=== PATIENT | female | born 1960 | race Caucasian/White ===

== ENCOUNTER 2020-09-17 05:40 | Inpatient (IN) | payer OTHER, SELFPAY ==
[2020-09-17] VITALS (7 sets, daily range): BP systolic 119–142; BP diastolic 44–76
[~2020-09-17] VITALS: Ht 165.1 cm; Wt 104.3 kg
--- NOTE | 2020-09-17 05:40 | NUR ---
0520- PT [facility]. TAKEN TO BED 9
[2020-09-17] MEDS ORDERED: NACL 0.9% 1,000 ML IV ONE ×2 (05:50)
--- NOTE | 2020-09-17 06:08 | NUR ---
X-Ray at bedside.
[2020-09-17] MEDS ORDERED: cefTRIAXone 1,000 MG VIAL ONE (06:09)
[2020-09-17] MEDS ORDERED: LANS15EC28 GT (06:19)
[2020-09-17] MEDS ORDERED: METO25TA GT (06:19)
[2020-09-17] MEDS ORDERED: QUET25TA GT (06:19)
[2020-09-17] MEDS ORDERED: SYN.1 GT (06:19)
[2020-09-17] MEDS ORDERED: [UNRECOGNIZED DRUG - CODE] SQ (06:19)
[2020-09-17] MEDS ORDERED: LACT1CAP59 GT (06:19)
[2020-09-17] MEDS ORDERED: DOCU-299 GT (06:19)
--- NOTE | 2020-09-17 06:39 | NUR ---
Dr. Herr examining patient.
[2020-09-17] MEDS ORDERED: ACETAMINOPHEN 650 MG/20.3 ML UDC GT ONE (06:45)
[2020-09-17] MEDS ORDERED: ACETAMINOPHEN EXTRA STRENGTH 500 MG TAB PEG ONE (06:50)
[2020-09-17 06:52] LABS: BASOPHILS # (AUTO) 0.1 K/uL (0.00-0.22); BASOPHILS % (AUTO) 0.5 % (0.0-2.0); EOSINOPHILS # (AUTO) 0.1 K/uL (0-0.4); EOSINOPHILS % (AUTO) 0.8 % (0.0-4.0); HEMATOCRIT 33.7 % (36-48); HEMOGLOBIN 11.1 g/dL (12.0-16.0); LYMPHOCYTES # (AUTO) 2.7 K/uL (2.5-16.5); LYMPHOCYTES % (AUTO) 15.1 % (20.5-51.1); MEAN CORPUSCULAR HEMOGLOBIN 31 pg (27-31); MEAN CORPUSCULAR HGB CONC 33 g/dL (33-37); MEAN CORPUSCULAR VOLUME 95.6 fL (80-94); MONOCYTES # (AUTO) 0.8 K/uL (0.8-1.0); MONOCYTES % (AUTO) 4.3 % (1.7-9.3); NEUTROPHILS # (AUTO) 14.1 K/uL (1.8-7.7); NEUTROPHILS % (AUTO) 79.3 % (42.2-75.2); PLATELET COUNT (AUTO) 479 K/uL (140-450); RED BLOOD CELL COUNT(AUTO) 3.53 MIL/uL (4.20-5.40); RED CELL DISTRIBUTION WIDTH 15.1 % (11.6-13.7); WHITE BLOOD COUNT (AUTO) 17.8 K/uL (4.8-10.8)
--- NOTE | 2020-09-17 07:10 | NUR ---
RECEIVED REPORT FROM ROBY SANCHEZ, ASSUMED CARE AT THIS TIME.
[2020-09-17 07:15] LABS: ALBUMIN 2.5 g/dL (3.4-5.0); ANION GAP 6.5 (8-16); CARBON DIOXIDE 37.8 mmol/L (21-32); CREATININE 0.6 mg/dL (0.6-1.3); POTASSIUM 5.3 mmol/L (3.5-5.1); TOTAL BILIRUBIN 0.1 mg/dL (0.0-1.0)
[2020-09-17] MEDS ORDERED: SODIUM ZIRCONIUM CYCLOSILICATE 10 GM POWD.PACK GT ONE (07:30)
[2020-09-17 07:47] LABS: BILIRUBIN,URINE NEGATIVE (NEGATIVE); BLOOD, URINE 2+ (NEGATIVE); COLOR,URINE YELLOW (YELLOW); NITRITE, URINE NEGATIVE (NEGATIVE); PH,URINE 8.5 (5.0-9.0); UGLUCOSE NEGATIVE (NEGATIVE)
[2020-09-17] MEDS ORDERED: ACETAMINOPHEN 650 MG SUPP RC ONE (08:05)
[2020-09-17 08:25] LABS: LEUKOCYTE ESTERASE ,URINE TRACE (NEGATIVE)
[2020-09-17 08:26] LABS: APPEARANCE,URINE SLIGHTLY HAZY (CLEAR)
--- NOTE | 2020-09-17 08:47 | NUR ---
NOVEL COVID SWAB COLLECTED AND WALKED TO LAB.
--- NOTE | 2020-09-17 09:00 | NUR ---
Fermin chrisitne in ED - 09/17/20 at 1919 by [email or web address] Attempted to use g-tube for medications, unable to pass meds through, Dr. Herr made aware.
--- NOTE | 2020-09-17 09:00 | NUR ---
Attempted to use g-tube for medications, unable to pass meds through, Dr. Herr made aware.
[2020-09-17] MEDS ORDERED: MORPHINE SULFATE 4 MG/ML SYR IVP PRN (09:40)
[2020-09-17] MEDS ORDERED: HYDROcodone/APAP 5/325 MG 1 TAB TAB PO PRN (09:40)
[2020-09-17] MEDS ORDERED: KCL 20 MEQ/WATER INJ PREMIX 200 ML IV PRN (09:40)
[2020-09-17] MEDS ORDERED: ACETAMINOPHEN 325 MG TAB PO PRN (09:40)
[2020-09-17] MEDS ORDERED: MAG SULF 2000 MG/WATER PREMIX 50 ML IV PRN (09:40)
[2020-09-17] MEDS ORDERED: MAGNESIUM OXIDE 400 MG TAB PO PRN (09:40)
[2020-09-17] MEDS ORDERED: ONDANSETRON 4 MG/2 ML VIAL IVP PRN (09:40)
[2020-09-17] MEDS ORDERED: POTASSIUM CHLORIDE 10 MEQ TABER PO PRN (09:40)
--- NOTE | 2020-09-17 10:00 | NUR ---
Repositioned patient in a position of comfort with pillows. Patient on bedside patient monitor.
[2020-09-17] MEDS: NACL 0.9% 1,000 ML IV SCH ×2 (11:22→22:10)
--- NOTE | 2020-09-17 12:00 | NUR ---
Patient repositioned with pillows on her left side. On bedside blade changer.
[2020-09-17] MEDS ORDERED: PIPERACILLIN/TAZOBACTAM 3.375 GM VIAL IV ONE ×3 (12:11→23:55)
[2020-09-17] MEDS: PIPERACILLIN/TAZOBACTAM 3.375 GM in DEXTROSE 5% 50 ML IV SCH ×2 (12:22→18:42)
--- NOTE | 2020-09-17 14:00 | NUR ---
Patient repositioned in a position of comfort, patient on bedside alarm security or surveillance monitor. Sister at bedside.
--- NOTE | 2020-09-17 15:32 | NUR ---
Dr. Bernabe is at bedside speaking with family.
--- NOTE | 2020-09-17 16:00 | NUR ---
Patient repositioned in a position of comfort, patient on bedside property assessment monitor. Sister at bedside.
--- NOTE | 2020-09-17 18:00 | NUR ---
Patient repositioned in a position of comfort, patient on bedside monitor car operator. Son at bedside
--- NOTE | 2020-09-17 18:35 | NUR ---
When patient asked if in pain, able to nod yes. Will give medication as ordered PRN.
--- NOTE | 2020-09-17 18:35 | NUR ---
When patient asked if in pain, able to nod yes. Will give medication as ordered PRN.
--- NOTE | 2020-09-17 19:20 | NUR ---
PT IS AWAKE AND ALERT, NODS HEAD TO ANSWER QUESTIONS. SON IS AT BEDSIDE. PT DENIES PAIN AND DISCOMFORT. PEG TUBE PATENT. AUSCULTATION OF AIR INSERTED HEARD. PROVIDED WITH WATER VIA GTUBE PER REQUEST. ALL NEEDS ARE MET AT THIS TIME. BED LOCKED IN LOWEST POSITION, SIDE RAILS X2.
--- NOTE | 2020-09-17 19:26 | NUR ---
Pt report given to Saundra. Transfer of care at this time.
--- NOTE | 2020-09-17 19:27 | NUR ---
RECEIVED REPORT FROM LAURA FELIX. TRANSFER OF CARE AT THIS TIME.
--- NOTE | 2020-09-17 20:36 | NUR ---
PT IS SLEEPING. EQUAL RISE AND FALL OF CHEST WALL. MO S/SX OF RESP DISTRESS. PT OPENS EYES TO SOUNDS AND TOUCH. ALL NEEDS MET AT THIS TIME. BED LOCKED IN LOWEST POSITION, SIDE RAILS X2. SON IS AT BEDSIDE.
--- NOTE | 2020-09-17 21:40 | NUR ---
CALLED AND GAVE REPORT TO LAURA AGUIAR 1925.
--- NOTE | 2020-09-17 22:40 | NUR ---
Patient will be admitted to care of . Admited to tele. Will go to room 124b. Belongings list completed. Report to giuliana licea.
--- NOTE | 2020-09-17 22:45 | NUR ---
ADMITTED A FEMALE PATIENT, NON VERBAL FROM ER TRANSPORTED VIA WONG GROSS TO VENT, HOLMAN CATHETER IN PLACE DRAINING YELLOW, CLOUDY URINE. ALL SAFETY PRECAUTIONS IN PLACE. MRSA SCREENING DONE. KEPT CLEAN, DRY AND COMFORTABLE. CALLED AND SPOKE TO HER SON ANNIKA ASKED SOME INFORMATION. ON TELE MONITORING. Addendum: 09/18/20 at 0107 by Oneida Bonilla RN RN CC: ELEVATED HEART RATE DX: SEPSIS , UTI, ANEMIA. V/S : 135/77, 19, 126, 97.9, 97 5, 97%.
[2020-09-18] MEDS: PIPERACILLIN/TAZOBACTAM 3.375 GM in DEXTROSE 5% 50 ML IV SCH ×3 (00:09→11:09)
[2020-09-18] MEDS: NACL 0.9% 1,000 ML IV SCH ×3 (00:12→23:10)
[2020-09-18 04:00] VITALS: BP 118/61
[2020-09-18] MEDS ORDERED: PIPERACILLIN/TAZOBACTAM 3.375 GM VIAL IV ONE (04:58)
[2020-09-18 05:41] LABS: BASOPHILS % (AUTO) 0.5 % (0.0-2.0); EOSINOPHILS # (AUTO) 0.4 K/uL (0-0.4); EOSINOPHILS % (AUTO) 4.3 % (0.0-4.0); HEMATOCRIT 29.4 % (36-48); HEMOGLOBIN 9.9 g/dL (12.0-16.0); LYMPHOCYTES % (AUTO) 20.3 % (20.5-51.1); MEAN CORPUSCULAR HEMOGLOBIN 32 pg (27-31); MEAN CORPUSCULAR HGB CONC 34 g/dL (33-37); MEAN CORPUSCULAR VOLUME 94.4 fL (80-94); MONOCYTES # (AUTO) 0.6 K/uL (0.8-1.0); MONOCYTES % (AUTO) 6.6 % (1.7-9.3); NEUTROPHILS # (AUTO) 6.7 K/uL (1.8-7.7); NEUTROPHILS % (AUTO) 68.3 % (42.2-75.2); PLATELET COUNT (AUTO) 347 K/uL (140-450); RED BLOOD CELL COUNT(AUTO) 3.12 MIL/uL (4.20-5.40); WHITE BLOOD COUNT (AUTO) 9.8 K/uL (4.8-10.8)
[2020-09-18 06:06] LABS: PROTHROMBIN TIME 9.9 secs (10.8-13.4)
[2020-09-18 06:36] LABS: ALBUMIN 2.3 g/dL (3.4-5.0); ANION GAP 8.1 (8-16); CARBON DIOXIDE 31.3 mmol/L (21-32); CREATININE 0.5 mg/dL (0.6-1.3); POTASSIUM 4.4 mmol/L (3.5-5.1); TOTAL BILIRUBIN 0.3 mg/dL (0.0-1.0)
--- NOTE | 2020-09-18 07:20 | NUR ---
RECEIVED BEDSIDE REPORT FROM SLITTER CREASER SLOTTER OPERATOR NURSE FOR CONTINUITY OF CARE. PT IS ASLEEP WITH CHEST RISE AND FALL SYMMETRICAL. BREATHING IS UNLABORED ON TRACH TO VENT. O2 SAT IS 98%. VENT SETTINGS FIO2 28%, PEEP 5, VT 350, RT 14. ON TELE MONITOR. G TUBE IN PLACE WITH NO FEEDING RUNNING FOR NPO STATUS. HOLMAN CATH IN PLACE. SKIN IS WARM, DRY, AND INTACT. IV IS IN THE LEFT AC 20 GAUGE RUNNING NS AT 80 ML PER HOUR PER ORDER. PT IS STABLE. PLAN OF CARE DISCUSSED.
--- NOTE | 2020-09-18 07:28 | NUR ---
ENDORSED TO AM RN FOR CONTINUITY OF CARE. PATIENT IS IN STABLE CONDITION.
[2020-09-18 08:00] VITALS: BP 108/75
--- NOTE | 2020-09-18 09:30 | NUR ---
ROUNDED ON PT. SHE IS ASLEEP. ON TRACH TO VENT WITH BREATHING UNLABORED. O2 SAT IS 98%. IV IS PATENT AND INFUSING ORDERED. G TUBE IS IN PLACE. HOLMAN CATH IS IN PLACE AND DRAINING YELLOW URINE. PT WAS REPOSITIONED ORDERED. PT IS STABLE.
--- NOTE | 2020-09-18 11:30 | NUR ---
PT IS ASLEEP. CHEST RISE AND FALL IS SYMMETRICAL. NO RESPIRATORY DISTRESS NOTED. FAMILY MEMBER AT BEDSIDE. PT IS ST ON TELE MONITOR. PT IS STABLE.
[2020-09-18 12:00] VITALS: BP 137/76
--- NOTE | 2020-09-18 12:10 | NUR ---
PATIENT HAS BEEN SCREENED AND CATEGORIZED HIGH NUTRITION RISK. PATIENT WILL BE SEEN WITHIN 1-2 DAYS OF ADMISSION. 09/18/[address]
[2020-09-18] MEDS ORDERED: LACTATED RINGERS 500 ML IV SCH (12:20)
[2020-09-18] MEDS: MEROPENEM 1,000 MG in NACL 0.9% 100 ML IV SCH ×2 (13:00→20:56)
--- NOTE | 2020-09-18 13:30 | NUR ---
PT WAS CHANGED AND REPOSITIONED. PT WAS SUCTIONED THROUGH TRACH. CREAMY, WHITE SECRETIONS WERE EXPELLED. PT TOLERATED THIS FAIRLY, O2 SAT IS 98% ON TRACH TO VENT. BREATHING UNLABORED. PT STABLE.
--- NOTE | 2020-09-18 15:00 | NUR ---
DC PLANNING 60 YRS OLD MALE PATIENT WAS ADMITTED FROM [facility] WITH A DX OF SEPSIS. PATIENT HAS A HISTORY OF CHRONIC RESP FAILURE, TRACH TO VENT, DM AND HTN. CXR SHOWED MILD PULMONARY VASCULAR CONGESTION. RAPID COVID TEST NEGATIVE. PCR IS PENDING. INFLUENZA A&B NEGATIVE. ADMINISTERED IVF, IV ABX MEROPENEM AND CONTINUED HOME MEDS. CONSULTED WITH PULMO. DC PLAN TO GO BACK TO [facility] WHEN STABLE CM TO FOLLOW Addendum: 09/22/20 at 1607 by Sonja Evangelista RN DC PLANNING; SPOKE WITH PT'S SON ANNIKA, REQUESTING PT CAN BE DECANNULATED AND DC HOME I EXPLAINED PT STILL NEEDS THE TRACH AND ADVISED TO STAY AT [facility] UNTIL SHE IS STABLE TO BE ON T-BAR. HE AGREED AND WILL FOLLOW UP WITH HER PRIMARY DR AT THE FACILITY AND AGREED PT TO GO BACK TO [facility]. PT CAN GO TO ROOM 2C UNDER DR LINK. # TO GIVE REPORT [phone]. ARRANGED TRANSPORT WITH [facility] UPTIME 7 PM. NOTIFIED ANAM SANCHEZ. CM TO FOLLOW Addendum: 09/23/20 at 1145 by Sonja Evangelista RN DC PLANNING: CALLED PT'S SON LEFT A MESSAGE. PER DR LINK TO SEND THE REQUEST TO [facility] AND [facility]. FAXED ALL PAPERWORK TO BOTH FACILITIES. CM TO FOLLOW Addendum: 09/23/20 at 1417 by Sonja Evaneglista RN DC PLANNING: SPOKE WITH PT'S SON ANNIKA DISCUSSED THE ISSUE AND CONCERN AT [facility] AND DOESN'T WANT HIS MOM TO BE RETURNED [facility]. PROVIDE [facility], [facility]'S ADDRESS. SPOKE WITH PREET AT [facility] REQUESTING RAPID COVID TEST. NOTIFIED MD AND ANAM TO PERFORM COVID TEST. CM TO FOLLOW Addendum: 09/23/20 at 1540 by Sonja Evangelista RN DC PLANNING: MET PT'S SON AT THE [facility] STATED VISITED [facility] AND REQUESTING HIS MOM TO BE TRANSFERRED TO [facility]. SPOKE WITH PARMINDER AT [facility] PROVIDE THE AUTH [id number] AND FOR TRANSPORT [id number] ARRANGE TRANSPORT WITH [facility] TIME 7PM. AWAITING FOR ROOM NUMBER. Addendum: 09/23/20 at 1654 by Sonja Evangelista RN DC PLANNINND COVID TEST NEGATIVE. PT IS ACCEPTED AT [facility] CAN GO TO ROOM 301-1 # TO GIVE REPORT [phone]. ARRANGED TRANSPORT WITH [facility] 7PM NOTIFIED ANAM SANCHEZ .
--- NOTE | 2020-09-18 15:30 | NUR ---
PT IS AWAKE WITH EYES OPEN. PT RESPONDS TO NAME. BREATHING IS UNLABORED ON TRACH TO VENT. G TUBE IS IN PLACE. NO FEEDING RUNNING FOR NPO STATUS. HOLMAN CATH IN PLACE AND DRAINING URINE. PT IS STABLE.
[2020-09-18 16:00] VITALS: BP 127/60
--- NOTE | 2020-09-18 16:24 | NUR ---
RECEIVED TORB FROM DR. HOOD TO START TUBE FEEDING WITH VITAL AF 1.2 @ 50 ML/HR AND FLUSH OF 90 ML Q8H.
--- NOTE | 2020-09-18 17:29 | NUR ---
09/18/20 RD INITIAL ASSESSMENT COMPLETED PLEASE REFER TO NUTRITION ASSESSMENT UNDER CARE ACTIVITY FOR ESTIMATED NUTRITIONAL NEEDS. 1. RECOMMEND VITAL AF 1.2 @ 50 ML/HR, START AT 25 ML/HR ADVANCE TO 50 ML/HR AFTER 2 HR -THIS WILL PROVIDE 1200 ML OF VOLUME, 1440 KCAL AND 90 GM OF PROTEIN. THIS MEETS 100% OF ESTIMATED KCAL AND PROTEIN NEEDS. 2. RECOMMEND FREE WATER FLUSH OF 90 ML Q8H OR PER MD 3. RD TO FOLLOW-UP 2-3 DAYS, HIGH RISK CORNELIO ESCALANTE RD
--- NOTE | 2020-09-18 17:30 | NUR ---
G TUBE FEEDING WAS STARTED. NO RESIDUAL IN G TUBE. PT IS ASLEEP. NO DISTRESS AT THIS TIME ON TRACH TO VENT. PT STABLE.
--- NOTE | 2020-09-18 19:15 | NUR ---
RECEIVED REPORT FROM AM NURSE. PATIENT IS IN SEMI FOWLERS POSITION EYES CLOSED. TRACH TO VENT. NO S/S OF SOB NOTED. RESPIRATION EVEN UNLABORED. IVF OF NS INFUSING AT 80 ML, HOLMAN CATHETER INTACT DRAINING WELL. WILL CONTINUE TO MONITOR.
--- NOTE | 2020-09-18 19:20 | NUR ---
PT SEEN AND ASSESSED. FOUND PT TRACH WITH PORTEX SIZE 8 ON VENT. VENT SETTINGS AC/VC 14, 350, +5, 24% WITH SPO2 OF 97%. AUSCULTATION REVEALS BILATERAL COARSE BREATH SOUNDS. SUCTION SMALL AMOUNT OF YELLOW WHITE THICK SECRETIONS. VENT PLUGGED IN RED OUTLET. ALARMS SET AND AUDIBLE. PT TOLERATING CURRENT TX WELL. WILL CONTINUE TO MONITOR PT.
--- NOTE | 2020-09-18 19:20 | NUR ---
ENDORSED PT TO SOURCING SPECIALIST NURSE FOR CONTINUITY OF CARE. PT IS STABLE. O2 SAT IS 99% ON TRACH TO VENT. PLAN OF CARE DISCUSSED.
[2020-09-18 20:00] VITALS: BP 146/66
[2020-09-19] VITALS (7 sets, daily range): BP systolic 124–160; BP diastolic 58–80
--- NOTE | 2020-09-19 01:00 | NUR ---
SUCTIONED SECRETIONS, KEPT CLEAN AND DRY.
--- NOTE | 2020-09-19 04:27 | NUR ---
ORAL CARE RENDERED, REPOSITIONED
[2020-09-19] MEDS: MEROPENEM 1,000 MG in NACL 0.9% 100 ML IV SCH ×3 (05:36→21:25)
[2020-09-19 06:01] LABS: BASOPHILS # (AUTO) 0.1 K/uL (0.00-0.22); BASOPHILS % (AUTO) 0.9 % (0.0-2.0); EOSINOPHILS # (AUTO) 0.3 K/uL (0-0.4); EOSINOPHILS % (AUTO) 3.1 % (0.0-4.0); HEMATOCRIT 30.7 % (36-48); HEMOGLOBIN 10.3 g/dL (12.0-16.0); LYMPHOCYTES # (AUTO) 1.5 K/uL (2.5-16.5); LYMPHOCYTES % (AUTO) 14.8 % (20.5-51.1); MEAN CORPUSCULAR HEMOGLOBIN 32 pg (27-31); MEAN CORPUSCULAR HGB CONC 34 g/dL (33-37); MEAN CORPUSCULAR VOLUME 94.3 fL (80-94); MONOCYTES # (AUTO) 0.6 K/uL (0.8-1.0); MONOCYTES % (AUTO) 5.4 % (1.7-9.3); NEUTROPHILS # (AUTO) 7.7 K/uL (1.8-7.7); NEUTROPHILS % (AUTO) 75.8 % (42.2-75.2); PLATELET COUNT (AUTO) 390 K/uL (140-450); RED BLOOD CELL COUNT(AUTO) 3.26 MIL/uL (4.20-5.40); RED CELL DISTRIBUTION WIDTH 14.6 % (11.6-13.7); WHITE BLOOD COUNT (AUTO) 10.2 K/uL (4.8-10.8)
[2020-09-19 06:15] LABS: PROTHROMBIN TIME 10.3 secs (10.8-13.4)
[2020-09-19 06:21] LABS: ALBUMIN 2.3 g/dL (3.4-5.0); ANION GAP 9.5 (8-16); CARBON DIOXIDE 29.1 mmol/L (21-32); CREATININE 0.4 mg/dL (0.6-1.3); MAGNESIUM 1.8 mg/dL (1.8-2.4); POTASSIUM 3.6 mmol/L (3.5-5.1); TOTAL BILIRUBIN 0.3 mg/dL (0.0-1.0)
--- NOTE | 2020-09-19 07:30 | NUR ---
RECEIVED BEDSIDE REPORT FROM CUSHION WORKER NURSE FOR CONTINUITY OF CARE. PT IS ASLEEP WITH CHEST RISE AND FALL BREATHING IS UNLABORED ON TRACH TO VENT. O2 SAT IS 98%. VENT SETTINGS FIO2 24%, PEEP 5, VT 350, RT 14. ON TELE MONITOR. G TUBE IN PLACE WITH VITAL AF 50 ML/HR, H20 FLUSH 90 ML/HR. HOLMAN CATH IN PLACE DRAINING URINE YELLOW BY GRAVITY. SKIN IS WARM, DRY, AND INTACT. IV IS IN THE LAC 20 GAUGE RUNNING NS AT 80 ML PER HOUR PER ORDER. PLAN OF CARE DISCUSSED. SAFETY PRECAUTIONS IN PLACE. CALL LIGHT WITHIN REACH. WILL CONTINUE TO MONITOR.
--- NOTE | 2020-09-19 07:30 | NUR ---
ENDORSED TO AM NURSE FOR CONTINUITY OF CARE. PATIENT IS STABLE.
--- NOTE | 2020-09-19 09:41 | NUR ---
NO SCHEDULED MEDICATIONS GIVEN. PT IS STABLE. NO S/S OF RESPIRATORY DISTRESS NOTED. WILL CONTINUE TO MONITOR.
[2020-09-19] MEDS: NACL 0.9% 1,000 ML IV SCH (10:50)
--- NOTE | 2020-09-19 12:00 | NUR ---
CHECKED ON PATIENT. PATIENT IS STABLE NO DISTRESS NOTED. WILL CONTINUE TO MONITOR.
--- NOTE | 2020-09-19 13:47 | NUR ---
ALL SCHEDULED MEDS GIVEN. PT IS STABLE. NO S/S OF RESPIRATORY DISTRESS NOTED. WILL CONTINUE TO MONITOR.
--- NOTE | 2020-09-19 15:38 | NUR ---
OBTAINED URINE CULTURE FROM PATIENT'S HOLMAN CATH PORT. SENT THE URINE CULTURE TO LAB
[2020-09-19] MEDS ORDERED: POTASSIUM CHLORIDE 20% 40 MEQ/15 ML UDC GT PRN (16:20)
--- NOTE | 2020-09-19 17:10 | NUR ---
ASSISTED ELECTRIC RAZOR ASSEMBLER WITH CLEANING AND CHANGING PATIENT'S SHEET. KEPT DRY AND CLEAN. PT IS STABLE. NO DISTRESS NOTED. WILL CONTINUE TO MONITOR.
--- NOTE | 2020-09-19 17:55 | NUR ---
REPLACED OLD TUBE FEEDING WITH NEW TUBE FEEDING. NO RESIDUAL WAS NOTED. WILL CONTINUE TO MONITOR.
--- NOTE | 2020-09-19 19:30 | NUR ---
ENDORSED TO STOCK CLERK NURSE FOR CONTINUITY OF CARE. PT IS STABLE.
--- NOTE | 2020-09-19 20:00 | NUR ---
RECEIVED PATIENT AWAKE IN BED. PATIENT TRACH TO VENT WITH SETTINGS AC VC. 24% FIO2, VT 350, PEEP OF 5 RATE OF 14. O2 SAT 97% AT THIS TIME. PATIENT NON VERBAL BUT ABLE TO NOD TO SHOW UNDERSTANDING. PT WITH RIGHT SIDED HEMIPARESIS. G-TUBE IN PLACE WITH TF RUNNING. HOLMAN CATH IN PLACE DRAINING CLEAR YELLOW URINE. PT'S SON AT BEDSIDE. POC OF CARE DISCUSSED. PT'S SON VERBALIZED UNDERSTANDING.
[2020-09-19] MEDS: METOPROLOL 50 MG TAB GT SCH (21:25)
[2020-09-19] MEDS: QUEtiapine FUMARATE 25 MG TAB GT SCH (21:25)
[2020-09-19] MEDS: DOCUSATE 100 MG/10 ML UDC GT SCH (21:25)
--- NOTE | 2020-09-19 22:00 | NUR ---
PT TURNED AND REPOSITIONED. ORAL CARE PROVIDED
[2020-09-20] VITALS: BP 126/67
[2020-09-20] MEDS: NACL 0.9% 1,000 ML IV SCH ×2 (01:20→12:32)
--- NOTE | 2020-09-20 04:00 | NUR ---
ORAL CARE DONE. PT TURNED AND REPOSITIONED FOR COMFORT
[2020-09-20] MEDS: MEROPENEM 1,000 MG in NACL 0.9% 100 ML IV SCH ×3 (04:51→20:24)
[2020-09-20 04:54] VITALS: BP 129/68
--- NOTE | 2020-09-20 07:15 | NUR ---
RECEIVED BEDSIDE REPORT FROM RESEARCH AND DEVELOPMENT ENGINEER NURSE FOR CONTINUITY OF CARE. PT IS AWAKE WITH EYES OPEN. TRACH TO VENT WITH O2 SAT AT 97%. BREATHING IS UNLABORED. VENT SETTINGS FIO2 24%, PEEP 5, VT 350, RT 14. ST ON TELE MONITOR. HR IS 105. G TUBE IN PLACE. G TUBE FEEDING IS RUNNING AT VITAL AF 1.2 AT 50 ML PER HOUR PER ORDER. WATER FLUSH 90 ML Q 8H. HOLMAN CATH IN PLACE. SKIN IS WARM, DRY, AND INTACT. IV IS IN THE LEFT AC 20 GAUGE RUNNING NS 80 ML PER HOUR PER ORDER. PLAN OF CARE DISCUSSED. PT IS STABLE.
--- NOTE | 2020-09-20 07:29 | NUR ---
PATIENT REPORT GIVEN TO AM NURSE. PATIENT ENDORSED IN STABLE CONDITION
[2020-09-20 08:00] VITALS: BP 145/62
[2020-09-20] MEDS: DOCUSATE 100 MG/10 ML UDC GT SCH ×2 (08:52→20:28)
[2020-09-20] MEDS: QUEtiapine FUMARATE 25 MG TAB GT SCH ×2 (08:53→20:28)
[2020-09-20] MEDS: LEVOTHYROXINE 0.1 MG TAB GT SCH (08:53)
[2020-09-20] MEDS: METOPROLOL 50 MG TAB GT SCH ×2 (08:54→20:46)
--- NOTE | 2020-09-20 09:30 | NUR ---
PT IS ASLEEP. EYES ARE CLOSED. NO DISTRESS NOTED ON TRACH TO VENT. O2 SAT IS 98%. PT WAS PROVIDED ORAL CARE AND ORAL SUCTIONING. SHE TOLERATED THIS TREATMENT WELL. G TUBE RESIDUAL IS LESS THAN 5 ML. PT TOLERATING FEEDING WELL. IV IS PATENT AND INTACT. WILL CONTINUE TO MONITOR.
--- NOTE | 2020-09-20 11:21 | NUR ---
FAMILY AT BEDSIDE. PT WAS COUGHING AND O2 SAT IS AT 94% ON TRACH TO VENT. PT WAS SUCTIONED THROUGH TRACH TWICE. CREAMY, WHITE SECRETIONS WERE EXPELLED. O2 SAT IS NOW AT 100%. NO RESPIRATORY DISTRESS NOTED. PT IS STABLE.
[2020-09-20 12:00] VITALS: BP 127/61
--- NOTE | 2020-09-20 13:30 | NUR ---
HAND TRIMMER AT BEDSIDE COMPLETING ECHOCARDIOGRAM. PT IS STABLE AT THIS TIME ON TRACH TO VENT. O2 SAT IS 99%. WILL CONTINUE TO MONITOR.
--- NOTE | 2020-09-20 15:30 | NUR ---
PT WAS SUCTIONED THROUGH TRACH AND ORALLY. PT HAD SMALL AMOUNT OF CREAMY, WHITE SECRETIONS EXPELLED. PT TOLERATED THIS WELL. O2 SAT IS 99%. NO RESPIRATORY DISTRESS NOTED. PT WAS REPOSITIONED. SON, ANNIKA, AT BEDSIDE.
[2020-09-20 16:00] VITALS: BP 151/58
--- NOTE | 2020-09-20 16:04 | NUR ---
PT PLACED ON SBT CPAP 5 PS 10 FIO2 24%. SON IS BEDSIDE AND UPDATED ON PT STATUS AND PROCESS OF SBT. VENT ALARMS ADEQUATELY SET WITH BACKUP MODE ALSO SET. WILL CONTINUE TO MONITOR.
--- NOTE | 2020-09-20 17:30 | NUR ---
PUT NEW DRESSING ON IV. SUCTIONED PT THROUGH TRACH. PT TOLERATED IT WELL. O2 SAT IS 95% ON SBT CPAP. NO DISTRESS AT THIS TIME. PT WAS REPOSITIONED.
--- NOTE | 2020-09-20 19:15 | NUR ---
ENDORSED PT TO ABSTRACT WRITER NURSE FOR CONTINUITY OF CARE. PT IS STABLE. O2 SAT IS 99% ON TRACH TO VENT. PLAN OF CARE DISCUSSED.
[2020-09-20 20:00] VITALS: BP 136/63
--- NOTE | 2020-09-20 20:46 | NUR ---
DUE MEDS GIVEN ORDERED.
[2020-09-21] VITALS: BP 134/71
[2020-09-21] MEDS: NACL 0.9% 1,000 ML IV SCH ×2 (02:00→12:40)
--- NOTE | 2020-09-21 02:00 | NUR ---
suctioned secretions prn
[2020-09-21 04:00] VITALS: BP 138/69
--- NOTE | 2020-09-21 04:00 | NUR ---
ORAL CARE RENDERED.
[2020-09-21] MEDS: MEROPENEM 1,000 MG in NACL 0.9% 100 ML IV SCH ×3 (04:33→21:10)
[2020-09-21 05:58] LABS: BASOPHILS % (AUTO) 0.6 % (0.0-2.0); EOSINOPHILS # (AUTO) 0.3 K/uL (0-0.4); EOSINOPHILS % (AUTO) 3.2 % (0.0-4.0); HEMATOCRIT 29.3 % (36-48); HEMOGLOBIN 9.9 g/dL (12.0-16.0); LYMPHOCYTES # (AUTO) 1.8 K/uL (2.5-16.5); LYMPHOCYTES % (AUTO) 20.6 % (20.5-51.1); MEAN CORPUSCULAR HEMOGLOBIN 32 pg (27-31); MEAN CORPUSCULAR HGB CONC 34 g/dL (33-37); MEAN CORPUSCULAR VOLUME 95.2 fL (80-94); MONOCYTES # (AUTO) 0.6 K/uL (0.8-1.0); MONOCYTES % (AUTO) 6.9 % (1.7-9.3); NEUTROPHILS % (AUTO) 68.7 % (42.2-75.2); PLATELET COUNT (AUTO) 365 K/uL (140-450); RED BLOOD CELL COUNT(AUTO) 3.08 MIL/uL (4.20-5.40); RED CELL DISTRIBUTION WIDTH 15.6 % (11.6-13.7); WHITE BLOOD COUNT (AUTO) 8.7 K/uL (4.8-10.8)
[2020-09-21 06:18] LABS: PROTHROMBIN TIME 9.6 secs (10.8-13.4)
[2020-09-21 06:33] LABS: ALBUMIN 2.2 g/dL (3.4-5.0); CARBON DIOXIDE 28.1 mmol/L (21-32); CREATININE 0.3 mg/dL (0.6-1.3); MAGNESIUM 1.9 mg/dL (1.8-2.4); POTASSIUM 4.1 mmol/L (3.5-5.1); TOTAL BILIRUBIN 0.2 mg/dL (0.0-1.0)
--- NOTE | 2020-09-21 07:13 | NUR ---
ENDORSED TO AM NURSE FOR CONTINUITY OF CARE. PATIENT IS STABLE.
--- NOTE | 2020-09-21 07:31 | NUR ---
RECEIVED CHANGE OF SHIFT REPORT FROM NIGHT NURSE. PT CONDITION IS STABLE. AWAKE WITH EYES OPEN AA&O X 1. PT IS TRACH TO VENT WITH O2 SAT AT 98% VENT SETTINGS FIO2 24%, PEEP 5, VT 350, RATE 14. PT IS SINUS RHYTHM ON TELE. PT HAS NS RUNNING IN LEFT AC 20G AT 80 ML/HR IV IS PATENT. GTUBE IN PLACE WITH FEED RUNNING VITALAF AT 50 ML/HR WITH WATER FLUSHES [address] Q[address] IN [address] AND DRAINING CLEAR YELLOW URINE. SKIN IS INTACT WARM, AND DRY. POC REVIEWED.
[2020-09-21 08:00] VITALS: BP 137/66
[2020-09-21] MEDS: QUEtiapine FUMARATE 25 MG TAB GT SCH ×2 (08:58→21:09)
[2020-09-21] MEDS: LEVOTHYROXINE 0.1 MG TAB GT SCH (08:58)
[2020-09-21] MEDS: DOCUSATE 100 MG/10 ML UDC GT SCH ×2 (08:59→21:05)
[2020-09-21] MEDS: METOPROLOL 50 MG TAB GT SCH ×2 (08:59→21:09)
--- NOTE | 2020-09-21 09:30 | NUR ---
PERFORMED FREQ ROUNDS. PT CONDITION IS STABLE. AA&OX1 ORIENTED TO NAME. PT ON TRACH TO VENT ON O2 PER MD ORDER. PT HAS IV RUNNING IN LAC PER MD ORDER. GT FEED IS RUNNING AND PT IS TOLERATING WELL. PT HAS FAMILY AT BEDSIDE. NO INDICATIONS OF PAIN. WILL CONTINUE TO PERFORM FREQ ROUNDS.
--- NOTE | 2020-09-21 09:54 | NUR ---
STABLE EQUAL CHEST RISE DEEP TRACHEAL SUCTION FOR MODERATE SEMI THICK PALE YELLOW SECRETIONS AIRWAY PATENT SON AT BEDSIDE
--- NOTE | 2020-09-21 09:56 | NUR ---
PT PLACED ON SBT CPAP 5 PS 10 AND FIO2 24%. SON IS BEDSIDE. WILL CONTINUE TO MONITOR.
[2020-09-21 12:00] VITALS: BP 126/57
--- NOTE | 2020-09-21 12:40 | NUR ---
09/21/20 RD FOLLOW UP COMPLETED PLEASE REFER TO NUTRITION ASSESSMENT UNDER CARE ACTIVITY FOR ESTIMATED NUTRITIONAL NEEDS. 1. CONTINUE VITAL AF 1.2 @ 50 ML/HR, START AT 25 ML/HR ADVANCE TO 50 ML/HR AFTER 2 HR -THIS WILL PROVIDE 1200 ML OF VOLUME, 1440 KCAL AND 90 GM OF PROTEIN. THIS [id number]% OF ESTIMATED KCAL AND PROTEIN NEEDS. 2. CONTINUE FREE WATER FLUSH OF 90 ML Q8H OR PER MD 3. RD TO FOLLOW-UP 2-3 DAYS, HIGH RISK JUANITA VAUGHN RD
--- NOTE | 2020-09-21 13:33 | NUR ---
STABLE TOLERATING SBT WELL WITHOUT ADVERSE REACTIONS NOTED GOOD CHEST RISE DEEP TRACHEAL SUCTION FOR LARGE SEMI THICK PALE YELLOW SECRETIONS AIRWAY PATENT FAMILY AT BEDSIDE
--- NOTE | 2020-09-21 14:42 | NUR ---
IV IN THE LEFT AC IS FLUSHING SLOWLY. NEW IV WAS PLACED ON LEFT HAND 24 GAUGE. IV IS PATENT AND FLUSHING WELL. PT TOLERATED THE IV WELL.
[2020-09-21 16:00] VITALS: BP 139/64
--- NOTE | 2020-09-21 16:24 | NUR ---
RESTING WELL GOOD CHEST RISE DEEP TRACHEAL SUCTION FOR MODERATE THIN PALE YELLOW SECRETIONS AIRWAY PATENT FAMILY AT BEDSIDE
--- NOTE | 2020-09-21 16:57 | NUR ---
FAMILY AT BEDSIDE. PT IS ON TRACH TO VENT. NO RESPIRATORY DISTRESS NOTED. IV IS PATENT AND FLUSHING WELL. G TUBE FEEDING IS INFUSING ORDERED. WILL CONTINUE TO MONITOR.
--- NOTE | 2020-09-21 18:16 | NUR ---
NO CHANGE IN CONDITION. PT CONTINUES TO BE STABLE. HAS FAMILY AT BEDSIDE. PT HAS GT FEED AND IV FLUIDS RUNNING PER MD ORDER. WILL CONTINUE TO MONITOR.
--- NOTE | 2020-09-21 18:40 | NUR ---
ADMINISTERED TYLENOL PRN FOR HEADACHE SIGNALED BY PT. GT RESIDUAL < 5 ML. WILL MONITOR FOR HEADACHE.
--- NOTE | 2020-09-21 19:23 | NUR ---
GAVE CHANGE OF SHIFT REPORT TO NIGHT NURSE AT BEDSIDE. PT CONDITION IS STABLE. PT IS AA&OX1. PT IS ON TRACH TO VENT. SHE IS BREATHING REGULAR AND UNLABORED. IV IS INTACT IN LEFT HAND AND RUNNING FLUIDS PER MD ORDER. POC DISCUSSED.
--- NOTE | 2020-09-21 19:24 | NUR ---
RECEIVED BEDSIDE REPORT FROM AM NURSE. PATIENT IN BED RESTING WITH SON AT BEDSIDE. TRACH TO VENT SETTING OF FIO2 AT 24, FLOW RATE AT 40L, PEEP AT 5. NO S/S OF RESPIRATORY DISTRESS. IVF AND TUBE FEEDING INFUSING WELL. CALL LIGHT WITHIN REACH. WILL CONTINUE TO MONITOR.
[2020-09-21 20:00] VITALS: BP 143/76
--- NOTE | 2020-09-21 21:10 | NUR ---
SCHEDULED MEDS GIVEN ORDERED.
[2020-09-22] VITALS: BP 139/69
--- NOTE | 2020-09-22 01:52 | NUR ---
PATIENT IS SLEEPING. NO SIGNS OF RESPIRATORY DISTRESS NOTED. KEPT CLEAN AND DRY, REPOSITIONED .
[2020-09-22] MEDS: NACL 0.9% 1,000 ML IV SCH ×4 (02:10→22:54)
[2020-09-22 04:00] VITALS: BP 132/67
[2020-09-22] MEDS: MEROPENEM 1,000 MG in NACL 0.9% 100 ML IV SCH ×3 (05:31→20:35)
[2020-09-22 06:11] LABS: PROTHROMBIN TIME 9.5 secs (10.8-13.4)
[2020-09-22 06:21] LABS: BASOPHILS % (AUTO) 0.4 % (0.0-2.0); EOSINOPHILS # (AUTO) 0.3 K/uL (0-0.4); EOSINOPHILS % (AUTO) 3.2 % (0.0-4.0); HEMATOCRIT 29.2 % (36-48); HEMOGLOBIN 9.8 g/dL (12.0-16.0); LYMPHOCYTES # (AUTO) 2.4 K/uL (2.5-16.5); LYMPHOCYTES % (AUTO) 23.2 % (20.5-51.1); MEAN CORPUSCULAR HEMOGLOBIN 32 pg (27-31); MEAN CORPUSCULAR HGB CONC 33 g/dL (33-37); MEAN CORPUSCULAR VOLUME 95.6 fL (80-94); MONOCYTES # (AUTO) 0.6 K/uL (0.8-1.0); MONOCYTES % (AUTO) 5.9 % (1.7-9.3); NEUTROPHILS % (AUTO) 67.3 % (42.2-75.2); PLATELET COUNT (AUTO) 436 K/uL (140-450); RED BLOOD CELL COUNT(AUTO) 3.05 MIL/uL (4.20-5.40); RED CELL DISTRIBUTION WIDTH 15.4 % (11.6-13.7); WHITE BLOOD COUNT (AUTO) 10.5 K/uL (4.8-10.8)
[2020-09-22 06:32] LABS: ALBUMIN 2.1 g/dL (3.4-5.0); ANION GAP 6.1 (8-16); CARBON DIOXIDE 31.8 mmol/L (21-32); CREATININE 0.4 mg/dL (0.6-1.3); MAGNESIUM 1.8 mg/dL (1.8-2.4); POTASSIUM 3.9 mmol/L (3.5-5.1); TOTAL BILIRUBIN 0.1 mg/dL (0.0-1.0)
--- NOTE | 2020-09-22 07:24 | NUR ---
RECEIVED REPORT FROM E TAILER, PT IS STABLE WITH CHEST RISING AND FALLING EVEN AND UNLABORED. PT SHOWS NO S/S OF ACUTE DISTRESS OR SOB. ALL SAFETY MEASURES IN PLACE. CALL LIGHT WITHIN REACH. WILL CONTINUE TO MONITOR.
[2020-09-22 08:00] VITALS: BP 134/69
--- NOTE | 2020-09-22 08:08 | NUR ---
PT ORDERED TO GET PICC LINE PLACEMENT. INFORMED DR. HOOD OF CONSENT NEEDING TO BE OBTAINED. GAVE HIM PERSON TO NOTIFY PHONE NUMBER. WAITING FOR REPLY.
[2020-09-22] MEDS: METOPROLOL 50 MG TAB GT SCH ×2 (08:14→20:43)
[2020-09-22] MEDS: DOCUSATE 100 MG/10 ML UDC GT SCH ×2 (08:14→20:43)
[2020-09-22] MEDS: QUEtiapine FUMARATE 25 MG TAB GT SCH ×2 (08:14→20:43)
[2020-09-22] MEDS: LEVOTHYROXINE 0.1 MG TAB GT SCH (08:14)
--- NOTE | 2020-09-22 08:22 | NUR ---
ASHIA MEDICATION ADMINISTERED PER MD ORDER. 25 ML RESIDUAL, FLUSHED WITH 50 ML BEFORE AND AFTER ADMINISTRATION. PT IV IS PATENT AND INTACT. PT IS SATING AT 94%. ALL SAFETY MEASURES IN PLACE. WILL CONTINUE TO MONITOR.
--- NOTE | 2020-09-22 10:06 | NUR ---
PT PLACED ON SBT CPAP 5 PS 10 AND FIO2 24%. WILL CONTINUE TO MONITOR.
--- NOTE | 2020-09-22 10:25 | NUR ---
PICCLINE NURSE CALLED
--- NOTE | 2020-09-22 10:41 | NUR ---
DR. LINK ON FOR DR. HOOD, NOTIFIED HIM OF CONSENT NEEDING TO BE OBTAINED FOR MIDLINE. PROVIDED NUMBER OF FAMILY MEMBER. SPOKE WITH FAMILY AND THEY ARE AWARE, AND AWAITING FOR DR. LINK TO CALL. PT IS STABLE, ALL SAFETY MEASURES IN PLACE, CALL LIGHT WITHIN REACH. WILL CONTINUE TO MONITOR.
[2020-09-22 12:00] VITALS: BP 137/66
--- NOTE | 2020-09-22 13:05 | NUR ---
OBTAINED CONSENT FOR MIDLINE BY DR. ROMERO. FAMILY AT BEDSIDE AND SIGNED CONSENT. ALL QUESTIONS ANSWERED.
--- NOTE | 2020-09-22 14:06 | NUR ---
PT IS SATING AT 94% AND IS STABLE. ALL SAFETY MEASURES IN PLACE. WILL CONTINUE TO MONITOR.
--- NOTE | 2020-09-22 14:46 | NUR ---
PICC LINE NURSE AT BEDSIDE, PROCEDURE STARTING. PT IS STABLE
--- NOTE | 2020-09-22 15:10 | NUR ---
PT REMAINS ON SBT CPAP TOLERATING WELL . WILL CONTINUE TO MONITOR.
--- NOTE | 2020-09-22 15:15 | NUR ---
PICC LINE IS COMPLETE, PT TOLERATED PROCEDURE.
--- NOTE | 2020-09-22 15:16 | NUR ---
ANNIKA, PTS CHILD, STATED HE WOULD LIKE TO SPEAK WITH THE PANTOMIMIST BECAUSE THEY DON'T WANT [place] GOING [place] [facility] SPOKE WITH STEPHEN AND INFORMED HER. STEPHEN WILL FOLLOW
[2020-09-22 16:00] VITALS: BP 136/65
--- NOTE | 2020-09-22 16:41 | NUR ---
PT BACK ON AC VC. PT COMPLETED SIX HOURS CPAP. NURSE AWARE. VENT ALARMS ON AND FUNCTIONING. TRACH SECURE WITH A PATENT AIRWAY.
[2020-09-22] MEDS ORDERED: MERO1PDS7 IV (16:43)
--- NOTE | 2020-09-22 16:54 | NUR ---
PT HAS BEEN CLEANED, REPOSITIONED AND ASSESSED. NO REDNESS OR WOUNDS NOTED, SKIN INTACT. IV IN HAND REMOVED. CATH INTACT. ALL SAFETY MEASURES IN PLACE. PT IS SATING AT 98%. HOLMAN CATH REMOVED, TIP IN PLACE. PT TOLERATED BOTH REMOVALS. PT IS TO KEEP MIDLINE IN PLACE TO CONTINUE IV ANTIBIOTICS
--- NOTE | 2020-09-22 17:28 | NUR ---
SPOKE TO SON AT BEDSIDE WITH RT NICOLÁS. ANSWERED ALL OF HIS QUESTIONS HE VOICED HIS CONCERNS ABOUT PT GOING BACK TO [facility], EXPLAINED THAT SHE IS MEDICALLY CLEARED AND STABLE. STEPHEN SPOKE TO SON OVER PHONE AND EXPLAINED THE SITUATION TO HIM WELL. SON VERBALIZED THAT HE IS GOING TO SPEAK WITH INSURANCE ABOUT TRANSFERRING HER SOON. ALL QUESTIONS ANSWERED
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
--- NOTE | 2020-09-22 18:09 | NUR ---
STEPHEN IS MADE AWARE OF SITUATION. WILL FOLLOW.
--- NOTE | 2020-09-22 19:29 | NUR ---
PT ENDORSED TO CALL CENTER SUPERVISOR IN STABLE CONDITION. POC DISCUSSED.
--- NOTE | 2020-09-22 19:30 | NUR ---
RECEIVED PATIENT FROM AM NURSE FOR CONTINUITY OF CARE. PATIENT IS AWAKE, ALERT, AND ORIENTED, [place] SPEAKING, EYE OPEN SPONTANEOUS, ABLE TO FOLLOW COMMANDS. PATIENT IS TRACH TO VENT, VENT SETTING FIO2 24%, VT 350, PEEP 5, RATE 14, O2 SAT 95%. NO SIGN OF RESPIRATORY DISTRESS NOTED. SKIN WARM, DRY, NON-DIAPHORETIC. PICC LINE DOUBLE LUMENS NOTED ON LEFT UPPER ARM, INTACT AND PATENT, IS INFUSING FLUID. G-TUBE IN PLACE FOR FEEDING @50ML/HR, WATER FLUSH 90ML Q8H. PATIENT TOLERATED IT WELL. FAMILY AT BEDSIDE. PER FAMILY, THEY WISH TO DISCHARGE PATIENT TO HOME IF IT POSSIBLE. WILL NOTIFY DR FAMILY'S WISH. PLAN OF CARE DISCUSSED WITH PATIENT AND FAMILY, FAMILY VERBALIZED UNDERSTANDING. PRECAUTION IN PLACE. CALL LIGHT WITHIN REACH. WILL CONTINUE TO MONITOR.
[2020-09-22 20:00] VITALS: BP 154/76
--- NOTE | 2020-09-22 20:00 | NUR ---
CLEAN AND REPOSITION PATIENT. PATIENT TOLERATED WELL. NO SIGN OF DISTRESS NOTED. HOB ELEVATED. PRECAUTION IN PLACE. CALL LIGHT WITHIN REACH. WILL CONTINUE TO MONITOR.
--- NOTE | 2020-09-22 20:43 | NUR ---
RESIDUAL LESS THAN 5 ML. SCHEDULE MEDICATIONS GIVEN WITH EDUCATION THROUGH G-TUBE. PATIENT TOLERATED IT WELL. HOB ELEVATED. PRECAUTION IN PLACE. CALL LIGHT WITHIN REACH. WILL CONTINUE TO MONITOR.
--- NOTE | 2020-09-22 22:00 | NUR ---
PATIENT IS RESTING IN BED, AROUSABLE TO VOICE. NO SIGN OF DISTRESS NOTED. PRECAUTION IN PLACE. HOB ELEVATED. CALL LIGHT WITHIN REACH. WILL CONTINUE TO MONITOR.
[2020-09-23] VITALS (7 sets, daily range): BP systolic 126–159; BP diastolic 53–81
--- NOTE | 2020-09-23 | NUR ---
VITAL SIGNS WITHIN NORMAL LIMIT. PATIENT IS SLEEPING, CHEST RISE AND FALL, NO SIGN OF DISTRESS NOTED. PRECAUTION IN PLACE. HOB ELEVATED. CALL LIGHT WITHIN REACH. WILL CONTINUE TO MONITOR.
--- NOTE | 2020-09-23 02:00 | NUR ---
ROUND CHECK. PATIENT IS SLEEPING, CHEST RISE AND FALL NOTED. NO SIGN OF DISTRESS. PRECAUTION IN PLACE. CALL LIGHT WITHIN REACH. WILL CONTINUE TO MONITOR.
--- NOTE | 2020-09-23 04:00 | NUR ---
REPOSITION AND CLEAN PATIENT. PATIENT TOLERATED WELL. NO SIGN OF RESPIRATORY DISTRESS, O2 SAT 94%. PRECAUTION IN PLACE. HOB ELVATED. CALL LIGHT WITHIN REACH. WILL CONTINUE TO MONITOR.
--- NOTE | 2020-09-23 04:45 | NUR ---
RT AT BEDSIDE FOR TRACH CARE. PATIENT NO DISTRESS. WILL CONTINUE TO MONITOR.
--- NOTE | 2020-09-23 07:14 | NUR ---
ENDORSED PATIENT TO AM NURSE FOR CONTINUITY OF CARE. PATIENT IS STABLE.
--- NOTE | 2020-09-23 07:24 | NUR ---
RECEIVED REPORT FROM AUTHOR'S AGENT NURSE FOR CONTINUITY OF CARE, POC DISCUSSED. PT IS RESTING IN BED WITH CHEST RISING AND FALLING EVEN AN UNLABORED. PT IS SATING AT 94%. PT HAS A MIDLINE DOUBLE LUMEN IN LEFT ARM. PT HAS A GTUBE RUNNING VITAL 50 ML WITH 90 ML Q8H FLUSHES. PT IS TRACH TO VENT. ALL SAFETY MEASURES IN PLACE, CALL LIGHT WITHIN REACH. WILL CONTINUE TO MONITOR.
--- NOTE | 2020-09-23 07:47 | NUR ---
INFORMED DR LINK OF CT ANGIO STILL ORDERED, DR. LINK ORDERED TO CANCEL THE CT SCAN. ORDER HAS BEEN CANCELED PER MD ORDER.
--- NOTE | 2020-09-23 08:03 | NUR ---
RECEIVED ON A Say2meSCAPE R860 VENTILATOR PLUGGED INTO RED OUTLET WITH COMPRESSOR ON AND FUNCTIONING WELL TO A PORTEX DCT #8 AIRWAY SECURE WITH A ALENA TRACH TIE CUFF PRESSURE CHECKED NOTE AMBU BAG AT BEDSIDE LOC ASLEEP EASILY AWAKENS RESTING COMFORTABLY EQUAL CHEST RISE DEEP TRACHEAL SUCTION FOR MODERATE THIN PALE YELLOW WITH SMALL THICK PLUG AIRWAY PATENT PROTECTIVE SIGNAL OPERATIONS SUPERVISOR TO ASSES AT A LATER TIME FOR CPAP TRIAL
[2020-09-23] MEDS: DOCUSATE 100 MG/10 ML UDC GT SCH ×2 (09:52→21:03)
[2020-09-23] MEDS: METOPROLOL 50 MG TAB GT SCH ×2 (09:52→21:04)
[2020-09-23] MEDS: LEVOTHYROXINE 0.1 MG TAB GT SCH (09:52)
[2020-09-23] MEDS: QUEtiapine FUMARATE 25 MG TAB GT SCH ×2 (09:52→21:04)
--- NOTE | 2020-09-23 09:54 | NUR ---
ASHIA MEDICATION ADMINISTERED PER MD ORDER, ASSESSED RESIDUAL, 75ML PULLED BACK AND PLACED BACK INTO TUBE. FLUSHED WITH 25 ML, ADMINISTERED MEDICATION, AND FLUSHED WITH ANOTHER 25ML. RESTARTED TUBE FEEDING. PT MIDLINE IS INTACT AND PATENT. ALL SAFETY MEASURES IN PLACE, SON AT BEDSIDE. ANSWERED ALL HIS QUESTIONS. WILL CONTINUE TO MONITOR.
--- NOTE | 2020-09-23 10:15 | NUR ---
RESTING WELL NO APPARENT PULMONARY DISTRESS NOTED AT THIS TIME EQUAL CHEST RISE AIRWAY PATENT PLACED ON CPAP NOTED FOR PULMONARY STRENGTHENING VAULT INSTALLER TO MONITOR ANAM/RN NOTIFIED
--- NOTE | 2020-09-23 11:38 | NUR ---
SUCTIONED PATIENT. PT IS SATING AT 92%. ALL SAFETY MEASURES IN PLACE.
[2020-09-23] MEDS: NACL 0.9% 1,000 ML IV SCH (12:18)
--- NOTE | 2020-09-23 13:28 | NUR ---
REPLENISHED THE IV FLUIDS. ALL SAFETY MEASURES IN PLACE, SON AT BEDSIDE. ALL SAFETY MEASURES IN PLACE. CALL LIGHT WITHIN REACH. WILL CONTINUE TO MONITOR.
--- NOTE | 2020-09-23 14:12 | NUR ---
TOLERATING CPAP WELL WITHOUT SOB NOTED EQUAL CHEST RISE DEEP TRACHEAL SUCTION FOR LARGE THIN YELLOW SECRETIONS AIRWAY PATENT
--- NOTE | 2020-09-23 15:21 | NUR ---
CLEANED PATIENT AND CHANGED HER SHEETS, NO WOUNDS OR REDNESS ON SKIN NOTED. PT TOLERATED REPOSITIONING AND CLEANING. ALL SAFETY MEASURES IN PLACE.
--- NOTE | 2020-09-23 17:25 | NUR ---
09/23/20 FOLLOW UP COMPLETED PLEASE REFER TO NUTRITION ASSESSMENT UNDER CARE ACTIVITY FOR ESTIMATED NUTRITIONAL NEEDS. 1. CONTINUE VITAL AF 1.2 @ 50 ML/HR, START AT 25 ML/HR ADVANCE TO 50 ML/HR AFTER 2 HR -THIS WILL PROVIDE 1200 ML OF VOLUME, 1440 KCAL AND 90 GM OF PROTEIN. THIS MEETS 100% OF ESTIMATED KCAL AND PROTEIN NEEDS. 2. CONTINUE FREE WATER FLUSH OF 90 ML Q8H OR PER MD 3. RD TO FOLLOW-UP 2-3 DAYS, HIGH RISK CORNELIO ESCALANTE RD
--- NOTE | 2020-09-23 17:44 | NUR ---
PT REPOSITIONED, AND CLEANED. PT IS SATING AT 98% ALL SAFETY MEASURES IN PLACE. CALL LIGHT WITHIN REACH. WILL CONTINUE TO MONITOR.
--- NOTE | 2020-09-23 17:45 | NUR ---
PT IS BEING PICKED UP BY [facility] AT 7, BUT TRANSPORT CALLED SAYING THEY ARE RUNNING BEHIND. WILL FINISH DISCHARGE AND CALL AND GIVE REPORT.
--- NOTE | 2020-09-23 18:25 | NUR ---
ASSISTED RN AND NURSE ANALYSIS REPORTING DEVELOPER WITH REPOSITIONING . FAMILY MEMBER AT BEDSIDE . 02% 97% TOLERATED WELL. NO S/SX OF DISTRESS AT THIS TIME. ALL SAFETY MEASURES ARE IN PLACE. TUBE FEEDINGS RESUMED.
--- NOTE | 2020-09-23 18:29 | NUR ---
FULL REPORT HAS BEEN GIVEN TO ABIEL RN AT [facility]. ENDORSED, MIDLINE AND ABX, TRACH AND SETTINGS, AND GTUBE AND FEEDINGS. ALL QUESTIONS HAVE BEEN ANSWERED AND PROVIDED WITH A CALL BACK NUMBER.
--- NOTE | 2020-09-23 18:38 | NUR ---
PT HAS BEEN CLEANED AND SUCTIONED. PT IS READY FOR DISCHARGE.
--- NOTE | 2020-09-23 19:29 | NUR ---
PT HAS BEEN ENDORSE TO [facility] AND IN STABLE CONDITION
--- NOTE | 2020-09-23 19:30 | NUR ---
RECEIVED PATIENT FROM AM NURSE FOR CONTINUITY OF CARE. PATIENT IS AWAKE, EYE OPEN SPONTANEOUS, ABLE TO FOLLOW SIMPLE COMMAND. RESPIRATORY EVEN AND UNLABORED, TRACH TO VENT; VENT SETTING: FIO2 24, VT 350, RR 14, PEEP 5, O2 SAT 95%. NO SIGN OF DISTRESS NOTED. SKIN WARM, DRY, NON DIAPHORETIC. MIDLINE DOUBLE LUMENS ON LEFT UPPER ARM, INTACT AND PATENT, IS INFUSING FLUID ORDER. G-TUBE IN PLACE FOR FEEDING WITH VITAL AF @50ML/HR, WATER FLUSH 90ML Q8H. FAMILY AT BEDSIDE. PLAN OF CARE DISCUSSED, FAMILY VERBALIZED UNDERSTANDING. PRECAUTION IN PLACE. CALL LIGHT WITHIN REACH. WILL CONTINUE TO MONITOR.
--- NOTE | 2020-09-23 21:03 | NUR ---
SCHEDULE MEDICATIONS GIVEN WITH EDUCATION TO FAMILY AND PATIENT. FAMILY VERBALIZED UNDERSTANDING. RESIDUAL CHECK LESS THAN 10CC. PATIENT TOLERATED WELL. PRECAUTION IN PLACE. CALL LIGHT WITHIN REACH. WILL CONTINUE TO MONITOR.
--- NOTE | 2020-09-23 22:00 | NUR ---
PATIENT IS RESTING IN BED, NO SIGN OF DISTRESS NOTED, O2 SAT 95%. PRECAUTION IN PLACE. CALL LIGHT WITHIN REACH. WILL CONTINUE TO MONITOR.
[2020-09-24] VITALS: BP 146/75
--- NOTE | 2020-09-24 | NUR ---
VITAL SIGN WITHIN NORMAL LIMIT. PATIENT IS AWAKE, EYE OPEN SPONTANEOUS. NO SIGN OF DISTRESS NOTED. PRECAUTION IN PLACE. HOB ELEVATED. CALL LIGHT WITHIN REACH. WILL CONTINUE TO MONITOR.
--- NOTE | 2020-09-24 02:00 | NUR ---
PATIENT IS SLEEPING, CHEST RISE AND FALL, NO SIGN OF DISTRESS, O2 SAT 93%. PRECAUTION IN PLACE. HOB ELEVATED. CALL LIGHT WITHIN REACH. WILL CONTINUE TO MONITOR.
--- NOTE | 2020-09-24 03:00 | NUR ---
[facility] ARRIVAL, HAND OFF REPORT GIVEN. PATIENT IS STABLE.
--- NOTE | 2020-09-24 03:15 | NUR ---
PATIENT LEFT FACILITY WITH [facility]. DISCHARGE PAPER WORK GIVEN. ARM BAND REMOVAL. PATIENT HAS NO BELONGING. G-TUBE IN PLACE. MIDLINE DOUBLE LUMENS LEFT UPPER ARM, INTACT AND PATENT. PATIENT IS STABLE.
--- NOTE | 2020-09-24 03:20 | NUR ---
CALLED PATIENT'S SON TO INFORM PATIENT'S TRANSPORTATION. FAMILY MEMBER VERBALIZED UNDERSTANDING.
== END 2020-09-24 02:15 | DRG 720 ==
LOC: MED 05:40 → MTU 09:45
PROVIDERS: ADMIT Hospitalist; ATTEND Hospitalist
PROC: 5A1955Z Respiratory Ventilation, Greater than 96 Consecutive Hours (ICD-10-PCS; principal; 2020-09-17)
PROC: 5A1935Z Respiratory Ventilation, Less than 24 Consecutive Hours (ICD-10-PCS; 2020-09-17)
PROC: 05HY33Z Insertion of Infusion Device into Upper Vein, Percutaneous Approach (ICD-10-PCS; 2020-09-22)
PROC: B54NZZA Ultrasonography of Left Upper Extremity Veins, Guidance (ICD-10-PCS; 2020-09-22)
DX: A41.9 Sepsis, unspecified organism (principal); E43 Unspecified severe protein-calorie malnutrition; J96.10 Chronic respiratory failure, unspecified whether with hypoxia or hypercapnia; Z93.0 Tracheostomy status; Z99.11 Dependence on respirator [ventilator] status; E87.3 Alkalosis; I50.22 Chronic systolic (congestive) heart failure; I11.0 Hypertensive heart disease with heart failure; N39.0 Urinary tract infection, site not specified; E03.9 Hypothyroidism, unspecified; E11.9 Type 2 diabetes mellitus without complications; E87.5 Hyperkalemia; D64.9 Anemia, unspecified; D47.3 Essential (hemorrhagic) thrombocythemia; Z20.822 Contact with and (suspected) exposure to COVID-19; R13.10 Dysphagia, unspecified; R65.20 Severe sepsis without septic shock; Z68.38 Body mass index [BMI] 38.0-38.9, adult; Z88.0 Allergy status to penicillin; Z86.73 Personal history of transient ischemic attack (TIA), and cerebral infarction without residual deficits; Z79.899 Other long term (current) drug therapy; Z93.1 Gastrostomy status
CPT/HCPCS: 36415; 51702; 71045; 80053; 81001; 83036; 83605; 83735; 83880; 84443; 84484; 85025; 85379; 85610; 87040; 87070; 87081; 87086; 87205; 87804; 93005; 94002; 94003; 96361; 96365; 96375; 99291; J0696; J2185; J2270; J2543; J7060; J7120; U0003